=== PATIENT | male | born 1980 | race American Indian/Alaskan Native ===

== ENCOUNTER 2018-03-22 16:43 | Emergency (ER) | payer MEDICAID ==
[2018-03-22] MEDS ORDERED: NACL 0.9% 1000 ML 1,000 ML IV ONE ×2 (17:15→21:21)
[2018-03-22 17:54] LABS: Basophils # (Auto) 0.1 K/mm3 (0.0-0.1); Basophils % (Auto) 1.5 % (0.0-1.8); Eosinophils # (Auto) 0.1 K/mm3 (0.0-0.4); Eosinophils % (Auto) 1.8 % (0.0-4.3); Hematocrit 47.9 % (35.5-45.6); Hemoglobin 16.8 gm/dl (11.8-15.2); Lymphocytes # (Auto) 1.5 K/mm3 (1.2-5.4); Lymphocytes % (Auto) 25.7 % (13.4-35.0); Mean Corpuscular HGB Conc 35 % (32-34); Mean Corpuscular Hemoglobin 30 pg (28-32); Mean Corpuscular Volume 86 fl (84-94); Monocytes # (Auto) 0.7 K/mm3 (0.0-0.8); Monocytes % (Auto) 12.2 % (0.0-7.3); Platelet Count 260 K/mm3 (140-440); Red Cell Distribution Width 13.2 % (13.2-15.2)
[2018-03-22 18:10] LABS: Alanine Aminotransferase 21 units/L (7-56); Albumin 4.6 g/dL (3.9-5); BUN/Creatinine Ratio 14; Blood Urea Nitrogen 15 mg/dL (9-20); Calcium 9.9 mg/dL (8.4-10.2); Hemolysis Index 16
[2018-03-22] MEDS ORDERED: ZOFRAN ODT ONE (20:13)
[2018-03-22] MEDS ORDERED: ZOFRAN ODT PO ONE (20:18)
[2018-03-22 20:21] LABS: Bilirubin,Urine NEG (Negative); Blood,Urine NEG (Negative); Color,Urine Amber (Yellow); Mucus,Urine 3+ /HPF
--- NOTE | 2018-03-22 21:15 | Emergency Department Report ---
ED Abdominal Pain HPI - General Chief Complaint: Abdominal Pain Stated Complaint: STOMACH PAIN/NAUSEA Time Seen by Provider: 03/22/18 21:15 Source: patient Mode of arrival: Ambulatory Limitations: No Limitations - History of Present Illness MD Complaint: abdominal pain -: days(s) (5) Location: epigastric Radiation: none Migration to: no migration Severity: moderate Severity scale (0 -10): 7 Quality: cramping, sharp Consistency: constant Improves With: nothing Worsens With: nothing Associated Symptoms: nausea, vomiting. denies: diarrhea, fever, chills - Related Data Previous Rx's Medication Instructions Recorded Last Taken Type Mag Hydrox/Aluminum Hyd/Simeth 30 ml PO QID PRN #1 oral.susp 03/23/18 Unknown Rx [Maalox Advanced Suspension] Ondansetron [Zofran Odt] 4 mg PO Q6H PRN #30 tab.rapdis 03/23/18 Unknown Rx Pantoprazole [Protonix] 40 mg PO BID #60 tablet 03/23/18 Unknown Rx Allergies Allergy/AdvReac Type Severity Reaction Status Date / Time No Known Allergies Allergy Unverified 03/22/18 17:10 ED Review of Systems ROS: Stated complaint: STOMACH PAIN/NAUSEA Other details as noted in HPI Comment: All other systems reviewed and negative Constitutional: denies: chills, fever Eyes: denies: eye pain ENT: denies: ear pain Respiratory: denies: cough, shortness of breath Cardiovascular: denies: chest pain, palpitations Endocrine: no symptoms reported Gastrointestinal: abdominal pain, nausea, vomiting. denies: diarrhea, constipation, hematemesis, melena, hematochezia Genitourinary: denies: urgency, dysuria Musculoskeletal: denies: back pain, joint swelling Skin: denies: rash, lesions Neurological: denies: headache, weakness Psychiatric: denies: anxiety, depression Hematological/Lymphatic: denies: easy bleeding, easy bruising ED Past Medical Hx - Past Medical History Hx Asthma: Yes - Surgical History Past Surgical History?: No - Social History Smoking Status: Current Every Day Smoker Substance Use Type: Alcohol, Marijuana - Medications Home Medications: Home Medications Medication Instructions Recorded Confirmed Last Taken Type Mag Hydrox/Aluminum Hyd/Simeth 30 ml PO QID PRN #1 oral.susp 03/23/18 Unknown Rx [Maalox Advanced Suspension] Ondansetron [Zofran Odt] 4 mg PO Q6H PRN #30 tab.rapdis 03/23/18 Unknown Rx Pantoprazole [Protonix] 40 mg PO BID #60 tablet 03/23/18 Unknown Rx ED Physical Exam - General Limitations: No Limitations General appearance: alert, in no apparent distress - Head Head exam: Present: atraumatic, normocephalic, normal inspection - Eye Eye exam: Present: normal appearance, PERRL, EOMI Pupils: Present: normal accommodation - ENT ENT exam: Present: normal exam, normal orophraynx, mucous membranes moist - Neck Neck exam: Present: normal inspection, full ROM. Absent: tenderness - Respiratory Respiratory exam: Present: normal lung sounds bilaterally. Absent: respiratory distress, wheezes, rales, rhonchi, stridor - Cardiovascular Cardiovascular Exam: Present: regular rate, normal rhythm, normal heart sounds - GI/Abdominal GI/Abdominal exam: Present: soft, tenderness (epigastric area), guarding, normal bowel sounds. Absent: distended, rebound, rigid - Extremities Exam Extremities exam: Present: normal inspection, full ROM, normal capillary refill. Absent: tenderness - Back Exam Back exam: Present: normal inspection, full ROM. Absent: tenderness - Neurological Exam Neurological exam: Present: alert, oriented X3, CN II-XII intact - Psychiatric Psychiatric exam: Present: normal affect, normal mood - Skin Skin exam: Present: warm, dry, intact, normal color. Absent: rash ED Course Vital Signs 03/22/18 03/23/18 17:10 00:30 Temperature 98.2 F Pulse Rate 72 75 Respiratory 20 16 Rate Blood Pressure 146/104 Blood Pressure 111/74 [Left] O2 Sat by Pulse 98 Oximetry - Reevaluation(s) Reevaluation #1: 03/23/18 01:36 Patient said his abdominal pain has resolved after treatment in the ED. He does not have a hernia or undescended testis. He also said he has a history of Gastritis. i will discharge him with Gastroenterology referral and anti gastritis medication. ED Medical Decision Making - Lab Data Result diagrams: 03/22/18 17:32 03/22/18 17:32 - Radiology Data Radiology results: report reviewed, image reviewed - Medical Decision Making Gastritis. Pancreatitis. Abdominal Pain. Critical care attestation.: If time is entered above; I have spent that time in minutes in the direct care of this critically ill patient, excluding procedure time. ED Disposition Clinical Impression: Gastritis Qualifiers: Gastritis type: unspecified gastritis Chronicity: chronic Gastritis bleeding: without bleeding Qualified Code(s): K29.50 - Unspecified chronic gastritis without bleeding GERD (gastroesophageal reflux disease) Qualifiers: Esophagitis presence: without esophagitis Qualified Code(s): K21.9 - Gastro- esophageal reflux disease without esophagitis Abdominal pain Qualifiers: Abdominal location: epigastric Qualified Code(s): R10.13 - Epigastric pain Nausea and vomiting Qualifiers: Vomiting type: unspecified Vomiting Intractability: non-intractable Qualified Code(s): R11.2 - Nausea with vomiting, unspecified Disposition: TO HOME OR SELFCARE Is pt being admited?: No Does the pt Need Aspirin: No Condition: Stable Instructions: Gastritis (ED), Gastroesophageal Reflux Disease (ED), Abdominal Pain (ED) Additional Instructions: Follow up with the [facility] Dr Lopez tomorrow morning. Return to the ED if your condition worsens. Prescriptions: Mag Hydrox/Aluminum Hyd/Simeth [Maalox Advanced Suspension] 30 ml PO QID PRN #1 oral.susp PRN Reason: abdominal pain Ondansetron [Zofran Odt] 4 mg PO Q6H PRN #30 tab.rapdis PRN Reason: Nausea And Vomiting Pantoprazole [Protonix] 40 mg PO BID #60 tablet Referrals: NARGIS ROSSI MD [Primary Care Provider] - 3-5 Days RALPH LOPEZ MD [Staff Physician] - 3-5 Days Time of Disposition: 01:42
[2018-03-22] MEDS ORDERED: MORPHINE IV ONE (21:22)
[2018-03-22] MEDS ORDERED: ZOFRAN IV ONE (21:22)
[2018-03-22 21:47] LABS: INR 0.88 (0.87-1.13)
[2018-03-22 21:48] LABS: Partial Thromboplastin Time 27.8 Sec. (24.2-36.6)
--- NOTE | 2018-03-22 23:01 | XRay Report ---
FINAL REPORT EXAM: XR CHEST 1V AP HISTORY: cough TECHNIQUE: AP portable view of the chest. PRIORS: None. FINDINGS: The cardiomediastinal silhouette appears normal. The lungs are clear. The bones and soft tissues are unremarkable. IMPRESSION: No evidence of acute cardiopulmonary disease.
[2018-03-23] MEDS ORDERED: REGLAN IV ONE (00:01)
--- NOTE | 2018-03-23 00:06 | Cat Scan Report ---
FINAL REPORT PROCEDURE: CT ABDOMEN PELVIS W CON TECHNIQUE: Computerized axial tomography of the abdomen and pelvis was performed after the IV injection of iodinated nonionic contrast. HISTORY: abdominal pain COMPARISON: No prior studies are available for comparison. FINDINGS: Visualized lower thorax: No significant abnormality. Liver: Normal size and attenuation. Spleen: Normal size and attenuation. Gallbladder and biliary system: Normal. Pancreas: Normal. Adrenals: Normal. Kidneys: Normal. GI tract: Small bowel loops are within normal limits. Colon is unremarkable. 4 millimeter calcific density is noted in the appendix. However appendix is of normal thickness without any evidence of surrounding inflammatory changes.. Lymph nodes and mesentery: Normal. Vasculature: Normal. Bladder: Normal. Reproductive organs: Normal. Peritoneum: No free fluid. Musculoskeletal structures: No significant abnormality. Other: None 3.2 x 1.4 centimeter hypodense lesion is noted in the left inguinal region.. IMPRESSION: 4 millimeter appendicoliths is identified without any CT evidence of appendicitis. 3.2 x 1.4 centimeter hypodense lesion in the left inguinal region may represent a retractile/undescended testis. Differential diagnosis includes the lymphadenopathy or a fluid collection. Ultrasound evaluation and clinical correlation are recommended.
[2018-03-23 00:37] VITALS: BP 111/74
[2018-03-23] MEDS ORDERED: ALUM-MAG HYDROX-SIMETH 200-200-20MG/5ML PO ONE (00:39)
[2018-03-23] MEDS ORDERED: LIDOCAINE VISCOUS 2% PO ONE (00:42)
[2018-03-23] MEDS ORDERED: PROTONIX IV ONE (00:43)
== END 2018-03-23 02:01 | disposition home or self-care (01) ==
LOC: EDSEX → ED 16:43
DX: K29.50 Unspecified chronic gastritis without bleeding (principal); K21.9 Gastro-esophageal reflux disease without esophagitis; J45.909 Unspecified asthma, uncomplicated; F17.200 Nicotine dependence, unspecified, uncomplicated; F12.10 Cannabis abuse, uncomplicated
CPT/HCPCS: 36415; 71045; 74177; 80053; 81001; 83690; 85025; 85610; 85730; 96361; 96374; 96375; 99285; C9113; J2270; J2405; J2765; J7030; Q9967; Q0162

== ENCOUNTER 2018-04-25 17:57 | Emergency (ER) | payer MEDICAID | END 2018-04-25 18:38 | disposition left against medical advice (07) | LOC: ED 17:57 | DX: R11.0 Nausea (principal); Z53.21 Procedure and treatment not carried out due to patient leaving prior to being seen by health care provider ==